=== PATIENT | female | born 1995 | race African-American/Black ===

== ENCOUNTER 2016-11-19 06:03 | Emergency (ER) | payer MEDICAID ==
[~2016-11-19] VITALS: Ht 172.7 cm; Wt 127.0 kg
[2016-11-19] MEDS ORDERED: PNV1TABL76 MT (07:46)
[2016-11-19] MEDS ORDERED: ACETAMINOPHEN 500MG TABLET PO SCH (08:00)
== END 2016-11-19 09:00 | disposition home or self-care (01) ==
LOC: ER 06:23 → L&D 06:26
PROVIDERS: ADMIT Obstetrics & Gynecology; ATTEND Obstetrics & Gynecology
DX: O26.892 Other specified pregnancy related conditions, second trimester (principal); M54.9 Dorsalgia, unspecified; Z3A.20 20 weeks gestation of pregnancy
CPT/HCPCS: 99281; G0378; Z7610